=== PATIENT | male | born 1950 | race Caucasian/White ===

== ENCOUNTER → 2024-10-12 | Outpatient (CLI) | payer MEDICARE, BC ==
[~2024-10-12] MED LIST: Iohexol 300 - 100 ML VIAL IV ONE; NS 100 ML IV SCH
== END ==
LOC: RAD 12:53
DX: K86.89 Other specified diseases of pancreas (principal); I71.40 Abdominal aortic aneurysm, without rupture, unspecified; I70.0 Atherosclerosis of aorta
CPT/HCPCS: Q9967